=== PATIENT | male | born 1990 | race Caucasian/White ===

== ENCOUNTER 2022-02-14 10:31 | Emergency (ER) | payer OTHER | END 2022-02-14 11:37 | disposition home or self-care (01) | LOC: JP.ED 10:31 | DX: H66.012 Acute suppurative otitis media with spontaneous rupture of ear drum, left ear (principal); Z88.0 Allergy status to penicillin; Z88.8 Allergy status to other drugs, medicaments and biological substances; Z72.0 Tobacco use | CPT/HCPCS: 99282; 99283 ==